=== PATIENT | female | born 1995 | race Caucasian/White ===

== ENCOUNTER 2017-06-07 13:30 | Outpatient (CLI) | payer OTHER, MEDICAID | END 2017-06-07 17:02 | disposition home or self-care (01) | LOC: OBT 13:30 → L-D 13:30 → OBT 17:02 | DX: O41.02X0 Oligohydramnios, second trimester, not applicable or unspecified (principal); Z3A.36 36 weeks gestation of pregnancy | CPT/HCPCS: 76818 ==

== ENCOUNTER 2017-06-14 08:46 | Inpatient (IN) | payer OTHER ==
[2017-06-14] MEDS ORDERED: CARBOPROST 250 MCG INJ IM (13:00)
[2017-06-14] MEDS ORDERED: OXYTOCIN 30 UNITS/LR 500 ML IV ×2 (13:00→21:30)
[2017-06-14] MEDS ORDERED: LIDOCAINE 1% (MPF) 30 ML INJ INJ (13:00)
[2017-06-14] MEDS ORDERED: MISOPROSTOL 200 MCG TAB PR (13:00)
[2017-06-14] MEDS ORDERED: IBUPROFEN 600 MG TAB PO ×2 (13:00→21:30)
[2017-06-14] MEDS ORDERED: AMPICILLIN 2 GM/NS (PMX) 100 ML IV (13:00)
[2017-06-14] MEDS ORDERED: METHYLERGONOVINE 0.2 MG INJ IM (13:00)
[2017-06-14] MEDS: LACTATED RINGER'S 1,000 ML IV ×2 (13:02→19:23)
[2017-06-14 14:06] LABS: ADD MAN DIFF? NO
[2017-06-14 14:08] LABS: WHITE BLOOD COUNT 10.3 10^3/ul (4.8-10.8)
[2017-06-14 14:08] LABS: ABNORMAL IP MESSAGE 1; BASOPHIL # 0.1 10^3/ul (0.0-0.1); BASOPHILS % 0.5 % (0.0-2.0); EOSINOPHILS % 0.3 % (0.0-7.0); HEMATOCRIT 36.8 % (37.0-47.0); HEMOGLOBIN 13.5 g/dl (12.0-16.0); LYMPHOCYTES # 1.2 10^3/ul (0.8-2.9); LYMPHOCYTES % 11.2 % (15.0-51.0); MEAN CORPUSCULAR HEMOGLOBIN 33.8 pg (29.0-33.0); MEAN CORPUSCULAR HGB CONC 36.7 g/dl (32.0-37.0); MONOCYTE # 0.3 10^3/ul (0.3-0.9); MONOCYTES % 2.7 % (0.0-11.0); NEUTROPHIL # 8.8 10^3/ul (1.6-7.5); NEUTROPHILS % 85.1 % (39.0-77.0); PLATELET COUNT 174 10^3/UL (140-415); RED CELL DISTRIBUTION WIDTH 13.7 % (11.5-14.5)
[2017-06-14 14:10] LABS: POSITIVE DIFF @See below
[2017-06-14] MEDS: OXYTOCIN 30 UNITS/LR 500 ML IV (14:13)
[2017-06-14 14:29] LABS: INR 0.87; PROTIME 11.9 Sec (11.9-14.9); PT RATIO 0.9
[2017-06-14 14:30] LABS: PARTIAL THROMBOPLASTIN TIME 29.2 Sec (25.0-35.0)
[2017-06-14] MEDS ORDERED: AMPICILLIN 1 GM/NS (PMX) 50 ML IV (16:30)
[2017-06-14] MEDS: BUTORPHANOL 2 MG INJ IV (19:11)
[2017-06-14] MEDS ORDERED: OXYCODONE/ASPIRIN (4.88/325) TAB PO (21:30)
[2017-06-14 21:47] LABS: RAPID PLASMA REAGIN NONREACTIVE (NR)
[2017-06-15] MEDS: BUTORPHANOL 2 MG INJ IV (02:24)
[2017-06-15] MEDS: LACTATED RINGER'S 1,000 ML IV ×3 (02:24→11:21)
[2017-06-15] MEDS ORDERED: FENTAnyl 2MCG/ML-ROPIV 0.2% 100 ML (11:24)
[2017-06-15] MEDS ORDERED: FENTAnyl 2MCG/ML-ROPIV 0.2% 100 ML BAG EPI (12:00)
[2017-06-15] MEDS ORDERED: DIPHENHYDRAMINE 50 MG INJ IV (12:00)
[2017-06-15] MEDS ORDERED: ONDANSETRON 4 MG INJ IV ×3 (12:00→17:30)
[2017-06-15] MEDS ORDERED: NALOXONE (0.4 MG/ML) INJ IV (12:00)
[2017-06-15] MEDS ORDERED: OXYTOCIN 30 UNITS/LR 500 ML IV ×2 (13:29→17:30)
[2017-06-15] MEDS ORDERED: ACETAMINOPHEN 325 MG TAB PO ×2 (13:30→17:30)
[2017-06-15] MEDS ORDERED: BENZOCAINE 20% 56 ML SPRAY TOP ×2 (13:30→17:30)
[2017-06-15] MEDS ORDERED: WITCH HAZEL/GLYCERIN PAD PR (13:30)
[2017-06-15] MEDS ORDERED: HYDROCODONE/APAP (5/325) TAB PO ×4 (13:30→17:30)
[2017-06-15] MEDS ORDERED: OXYCODONE/ASPIRIN (4.88/325) TAB PO ×4 (13:30→17:30)
[2017-06-15] MEDS ORDERED: DIBUCAINE 1% 30 GM OINT TOP (13:30)
[2017-06-15] MEDS ORDERED: LANOLIN 7 GM TUBE TOP (13:30)
[2017-06-15] MEDS: OXYTOCIN 30 UNITS/LR 500 ML IV ×3 (14:45→19:53)
[2017-06-15] MEDS ORDERED: CEFAZOLIN 1 GM/50 ML (PMX) 50 ML IVPB (15:30)
[2017-06-15] MEDS ORDERED: CARBOPROST 250 MCG INJ IM (17:30)
[2017-06-15] MEDS ORDERED: MISOPROSTOL 200 MCG TAB PR (17:30)
[2017-06-15] MEDS ORDERED: METHYLERGONOVINE 0.2 MG INJ IM (17:30)
[2017-06-15] MEDS ORDERED: DIBUCAINE 1% 30 GM OINT PR (17:30)
[2017-06-15] MEDS ORDERED: IBUPROFEN 600 MG TAB PO (18:00)
[2017-06-15] MEDS: LANOLIN 7 GM TUBE TOP (18:17)
[2017-06-15] MEDS: IBUPROFEN 600 MG TAB PO ×2 (18:17→23:28)
[2017-06-15] MEDS: WITCH HAZEL/GLYCERIN PAD PR (18:17)
[2017-06-15] MEDS: METHYLERGONOVINE 0.2 MG TAB PO (20:00)
[2017-06-15] MEDS ORDERED: SENNA/DOCUSATE NA (8.6MG/50MG) TAB PO (21:00)
[2017-06-15] MEDS: SENNA/DOCUSATE NA (8.6MG/50MG) TAB PO (22:11)
[2017-06-16] MEDS: IBUPROFEN 600 MG TAB PO ×4 (05:39→23:29)
[2017-06-16 08:28] LABS: ADD MAN DIFF? NO
[2017-06-16 08:30] LABS: WHITE BLOOD COUNT 11.4 10^3/ul (4.8-10.8)
[2017-06-16 08:30] LABS: BASOPHILS % 0.2 % (0.0-2.0); EOSINOPHILS % 0.2 % (0.0-7.0); HEMATOCRIT 31.8 % (37.0-47.0); HEMOGLOBIN 11.7 g/dl (12.0-16.0); LYMPHOCYTES # 1.2 10^3/ul (0.8-2.9); LYMPHOCYTES % 10.5 % (15.0-51.0); MEAN CORPUSCULAR HGB CONC 36.8 g/dl (32.0-37.0); MEAN CORPUSCULAR VOLUME 92.4 fl (82.0-101.0); MONOCYTE # 0.4 10^3/ul (0.3-0.9); MONOCYTES % 3.2 % (0.0-11.0); NEUTROPHIL # 9.7 10^3/ul (1.6-7.5); NEUTROPHILS % 85.5 % (39.0-77.0); PLATELET COUNT 137 10^3/UL (140-415); RED BLOOD COUNT 3.44 10^6/ul (4.20-5.40); RED CELL DISTRIBUTION WIDTH 14.2 % (11.5-14.5)
[2017-06-16] MEDS: SENNA/DOCUSATE NA (8.6MG/50MG) TAB PO ×2 (08:50→21:00)
[2017-06-16] MEDS ORDERED: CEFTRIAXONE 1 GM/50 ML (PMX) 50 ML IVPB (14:30)
[2017-06-17] MEDS: IBUPROFEN 600 MG TAB PO ×3 (05:52→18:07)
[2017-06-17] MEDS: MEASLES,MUMPS,RUBELLA VACCINE INJ SC* (07:34)
[2017-06-17] MEDS: SENNA/DOCUSATE NA (8.6MG/50MG) TAB PO (08:37)
[2017-06-17] MEDS ORDERED: MEASLES,MUMPS,RUBELLA VACCINE INJ SC* (09:00)
== END 2017-06-17 18:27 | disposition home or self-care (01) | DRG 775 ==
LOC: OBT 08:46 → L-D 08:46 → PP1 06-15 16:50 → OBT 12:09 → L-D 12:05
PROVIDERS: Obstetrics & Gynecology
PROC: 10E0XZZ Delivery of Products of Conception, External Approach (ICD-10-PCS; principal; 2017-06-14)
PROC: 0HQ9XZZ Repair Perineum Skin, External Approach (ICD-10-PCS; 2017-06-14)
DX: O60.14X0 Preterm labor third trimester with preterm delivery third trimester, not applicable or unspecified (principal); O70.0 First degree perineal laceration during delivery; Z37.0 Single live birth; Z3A.36 36 weeks gestation of pregnancy
CPT/HCPCS: 62319; 76818; 85025; 85610; 85730; 86592; 86900; 86901

== ENCOUNTER 2017-06-20 03:18 | Emergency (ER) | payer OTHER ==
[2017-06-20 04:43] LABS: ADD UMIC YES; UR ASCORBIC ACID NEGATIVE (NEGATIVE); UR BACTERIA FEW /HPF (NONE SEEN); UR BILIRUBIN (Dip) NEGATIVE (NEGATIVE); UR BLOOD (Dip) 3+ mg/dL (NEGATIVE); UR CLARITY SLIGHTLY CLOUDY (CLEAR); UR COLOR YELLOW (YELLOW); UR GLUCOSE (Dip) NEGATIVE (NEGATIVE); UR KETONES (Dip) NEGATIVE (NEGATIVE); UR LEUKOCYTE ESTERASE (Dip) 3+ Leu/ul (NEGATIVE); UR NITRITE (Dip) NEGATIVE (NEGATIVE); UR RBC > 182 /HPF (0-5); UR SPECIFIC GRAVITY (Dip) 1.015 (1.003-1.030); UR SQUAMOUS EPITHELIAL CELL FEW /HPF (FEW); UR TOTAL PROTEIN (Dip) 1+ mg/dl (NEGATIVE); UR UROBILINOGEN (Dip) 2+ mg/dL (NEGATIVE); UR WBC 153 /HPF (0-5)
[2017-06-20 04:50] LABS: ADD MAN DIFF? NO
[2017-06-20 04:52] LABS: BASOPHILS % 0.2 % (0.0-2.0); EOSINOPHILS # 0.2 10^3/ul (0.0-0.5); EOSINOPHILS % 1.9 % (0.0-7.0); HEMATOCRIT 33.7 % (37.0-47.0); HEMOGLOBIN 12.2 g/dl (12.0-16.0); LYMPHOCYTES # 1.1 10^3/ul (0.8-2.9); LYMPHOCYTES % 10.6 % (15.0-51.0); MEAN CORPUSCULAR HEMOGLOBIN 34.3 pg (29.0-33.0); MEAN CORPUSCULAR HGB CONC 36.2 g/dl (32.0-37.0); MEAN CORPUSCULAR VOLUME 94.7 fl (82.0-101.0); MEAN PLATELET VOLUME 11.7 fl (7.4-10.4); MONOCYTE # 0.5 10^3/ul (0.3-0.9); MONOCYTES % 4.6 % (0.0-11.0); NEUTROPHIL # 8.6 10^3/ul (1.6-7.5); NEUTROPHILS % 82.3 % (39.0-77.0); PLATELET COUNT 216 10^3/UL (140-415); RED BLOOD COUNT 3.56 10^6/ul (4.20-5.40); RED CELL DISTRIBUTION WIDTH 13.5 % (11.5-14.5)
[2017-06-20 04:52] LABS: WHITE BLOOD COUNT 10.4 10^3/ul (4.8-10.8)
[2017-06-20] MEDS: morphine 4 MG/ML VIAL IV (04:52)
[2017-06-20] MEDS: FAMOTIDINE 20 MG INJ IV (04:52)
[2017-06-20] MEDS: SOD CHLORIDE 0.9% 500 ML IV (04:52)
[2017-06-20] MEDS: ONDANSETRON 4 MG INJ IV (04:52)
[2017-06-20] MEDS: LIDOCAINE/MYLANTA 40 ML BTL PO (04:52)
[2017-06-20 05:14] LABS: ALANINE AMINOTRANSFERASE 95 IU/L (13-69); ALBUMIN 3.5 g/dl (3.3-4.9); ALBUMIN/GLOBULIN RATIO 1.02; ALKALINE PHOSPHATASE 316 IU/L (42-121); ANION GAP 12 (8-16); ASPARTATE AMINO TRANSFERASE 115 IU/L (15-46); BILIRUBIN,INDIRECT 0.4 mg/dl (0-1.1); BILIRUBIN,TOTAL 0.4 mg/dl (0.2-1.3); BLOOD UREA NITROGEN 10 mg/dl (7-20); CALCIUM 8.9 mg/dl (8.4-10.2); CARBON DIOXIDE 27 mmol/L (21-31); CHLORIDE 107 mmol/L (97-110); CREATININE 0.51 mg/dl (0.44-1.00); GLUCOSE 111 mg/dl (70-220); LIPASE 215 U/L (23-300); POTASSIUM 3.8 mmol/L (3.5-5.1); SODIUM 142 mmol/L (135-144); TOTAL PROTEIN 6.9 g/dl (6.1-8.1)
== END 2017-06-20 06:33 | disposition home or self-care (01) ==
LOC: E/R 03:18
DX: N30.00 Acute cystitis without hematuria (principal); R11.0 Nausea; R40.2142 Coma scale, eyes open, spontaneous, at arrival to emergency department; R40.2252 Coma scale, best verbal response, oriented, at arrival to emergency department; R40.2362 Coma scale, best motor response, obeys commands, at arrival to emergency department
CPT/HCPCS: 36415; 80053; 81001; 83690; 85025; 96374; 96375; 99284-25

== ENCOUNTER 2017-07-17 22:11 | Emergency (ER) | payer OTHER ==
[2017-07-18] MEDS: AL HYDROX/MG HYDROX/SIMETH 30 ML CUP PO (00:05)
== END 2017-07-18 02:06 | disposition home or self-care (01) ==
LOC: FTE 07-18 02:06
DX: O99.89 Other specified diseases and conditions complicating pregnancy, childbirth and the puerperium (principal); R10.13 Epigastric pain
CPT/HCPCS: 99283; Z7610

== ENCOUNTER 2018-05-24 05:22 | Emergency (ER) | payer OTHER ==
[2018-05-24] MEDS: ONDANSETRON 4 MG INJ IV (05:57)
[2018-05-24] MEDS: SOD CHLORIDE 0.9% 1,000 ML IV (05:57)
[2018-05-24] MEDS: morphine 4 MG/ML VIAL IV (05:58)
[2018-05-24 06:05] LABS: ADD MAN DIFF? NO
[2018-05-24 06:08] LABS: ABNORMAL IP MESSAGE 1; BASOPHILS % 0.5 % (0.0-2.0); EOSINOPHILS # 0.2 10^3/ul (0.0-0.5); EOSINOPHILS % 1.8 % (0.0-7.0); HEMATOCRIT 42.2 % (37.0-47.0); HEMOGLOBIN 14.5 g/dl (12.0-16.0); LYMPHOCYTES % 25.1 % (15.0-51.0); MEAN CORPUSCULAR HEMOGLOBIN 32.7 pg (29.0-33.0); MEAN CORPUSCULAR HGB CONC 34.4 g/dl (32.0-37.0); MEAN CORPUSCULAR VOLUME 95.3 fl (82.0-101.0); MEAN PLATELET VOLUME 13.3 fl (7.4-10.4); MONOCYTE # 0.5 10^3/ul (0.3-0.9); NEUTROPHIL # 5.4 10^3/ul (1.6-7.5); NEUTROPHILS % 66.5 % (39.0-77.0); PLATELET COUNT 177 10^3/UL (140-415); RED BLOOD COUNT 4.43 10^6/ul (4.20-5.40); RED CELL DISTRIBUTION WIDTH 13.1 % (11.5-14.5)
[2018-05-24 06:08] LABS: WHITE BLOOD COUNT 8.1 10^3/ul (4.8-10.8)
[2018-05-24 06:15] LABS: ADD UMIC YES; UR ASCORBIC ACID NEGATIVE (NEGATIVE); UR BILIRUBIN (Dip) NEGATIVE (NEGATIVE); UR BLOOD (Dip) 1+ mg/dL (NEGATIVE); UR CLARITY CLEAR (CLEAR); UR COLOR YELLOW (YELLOW); UR GLUCOSE (Dip) NEGATIVE (NEGATIVE); UR KETONES (Dip) NEGATIVE (NEGATIVE); UR LEUKOCYTE ESTERASE (Dip) TRACE Leu/ul (NEGATIVE); UR MUCUS FEW /HPF (NONE SEEN); UR NITRITE (Dip) NEGATIVE (NEGATIVE); UR RBC 3 /HPF (0-5); UR SPECIFIC GRAVITY (Dip) 1.018 (1.003-1.030); UR SQUAMOUS EPITHELIAL CELL FEW /HPF (FEW); UR TOTAL PROTEIN (Dip) NEGATIVE (NEGATIVE); UR UROBILINOGEN (Dip) NEGATIVE (NEGATIVE); UR WBC 2 /HPF (0-5)
[2018-05-24 06:27] LABS: POSITIVE DIFF @See below
[2018-05-24 06:36] LABS: ALANINE AMINOTRANSFERASE 23 IU/L (13-69); ALBUMIN 4.6 g/dl (3.3-4.9); ALBUMIN/GLOBULIN RATIO 1.21; ALKALINE PHOSPHATASE 85 IU/L (42-121); AMYLASE 106 U/L (11-123); ANION GAP 12 (5-13); ASPARTATE AMINO TRANSFERASE 35 IU/L (15-46); BILIRUBIN,INDIRECT 0.8 mg/dl (0-1.1); BILIRUBIN,TOTAL 0.8 mg/dl (0.2-1.3); BLOOD UREA NITROGEN 13 mg/dl (7-20); CALCIUM 9.5 mg/dl (8.4-10.2); CARBON DIOXIDE 26 mmol/L (21-31); CHLORIDE 104 mmol/L (97-110); CREATININE 0.64 mg/dl (0.44-1.00); Estimated GFR > 60 mL/min (>60); GLUCOSE 102 mg/dl (70-220); LIPASE 109 U/L (23-300); POTASSIUM 4.2 mmol/L (3.5-5.1); SODIUM 142 mmol/L (135-144); TOTAL PROTEIN 8.4 g/dl (6.1-8.1)
[2018-05-24] MEDS: SOD CHLORIDE 0.9% 100 ML (07:30)
[2018-05-24] MEDS: IOHEXOL 300MG/ML 150 ML BTL (07:30)
== END 2018-05-24 08:04 | disposition home or self-care (01) ==
LOC: FTE 05:22
DX: K80.80 Other cholelithiasis without obstruction (principal); R40.2142 Coma scale, eyes open, spontaneous, at arrival to emergency department; R40.2252 Coma scale, best verbal response, oriented, at arrival to emergency department; R40.2362 Coma scale, best motor response, obeys commands, at arrival to emergency department
CPT/HCPCS: 36415; 74177; 76705; 80053; 81001; 81025; 82150; 83690; 85025; 96361; 96374; 99285-25